=== PATIENT | female | born 1930 | race Caucasian/White ===

== ENCOUNTER 2017-08-23 22:51 | Observation (INO) | payer MEDICARE, BC ==
[2017-08-23] MEDS ORDERED: Sodium Chloride 0.9% 10 ML Syringe FLUSH PRN (23:16)
--- NOTE | 2017-08-24 00:11 | EDM.PDOC ---
ED HPI GENERAL MEDICAL PROBLEM - General Chief Complaint: Cardiovascular Problem Stated Complaint: Elevated Blood Pressure Time Seen by Provider: 08/23/17 22:52 Source of Information: Reports: Patient, RN, RN Notes Reviewed History Limitations: Reports: No Limitations - History of Present Illness INITIAL COMMENTS - FREE TEXT/NARRATIVE: Patient presents the emergency room at [facility] with concerns of elevated blood pressure, blurry vision, and the right arm pressure. The patient states that she "wasn't feeling very well" yesterday so she thought she would monitor her blood pressures due to her symptoms. The patient states that her blood pressures usually run 110s over the 70s. The patient has noticed over the past couple of days her blood pressures have been running 150s to 160s over the 80s. The patient states that she usually takes her blood pressure medication at night because they make her sleepy during the day if she is to take them in the morning. The patient denies any headache. The patient states that her vision feels a little bit off. The patient denies any chest pain. The patient states she still has an achiness of her right shoulder. The patient denies any nausea vomiting or diarrhea. The patient denies any focal neurological changes. The patient states she is steady on her feet. The patient did take her blood pressure medication prior to arrival to the emergency room tonight. The patient states that she was given a wait until clinic time tomorrow but she felt that her symptoms were progressively getting worse. The patient denies any shortness of breath or cough. The patient is compliant with her blood pressure medications. The patient takes Hydrochlorothiazide, Toprol-XL, Micardis daily at bedtime. The patient denies any dizziness. The patient states that she is trying to stay well-hydrated with good by mouth fluid intake. The patient denies any injury to the right arm. Onset Date: 08/22/17 - Related Data Allergies Allergy/AdvReac Type Severity Reaction Status Date / Time amoxicillin trihydrate Allergy Rash Verified 08/24/17 00:46 [From Augmentin] cefazolin Allergy Cannot Verified 08/24/17 00:46 Remember potassium clavulanate Allergy Rash Verified 08/24/17 00:46 [From Augmentin] Home Meds: Home Meds Ascorbic Acid [Vitamin C] 1,000 mg PO DAILY 09/12/14 [History] Estrogens, Conjugated [Premarin] 0.625 mg PO DAILY 09/12/14 [History] Hydrochlorothiazide 1 tab PO DAILY 09/12/14 [History] Ibuprofen 200 mg PO Q6H PRN 09/12/14 [History] Metoprolol Succinate [Toprol XL] 1 tab PO DAILY 09/12/14 [History] Moxifloxacin [Vigamox 0.5% Ophth Soln] 1 drop EYERT TID 09/12/14 [History] Multivitamin W-Minerals/Lutein [Vision Plus Lutein Vitamin] 1 tab PO DAILY 09/12 [History] Oxybutynin Chloride 1 tab PO DAILY 09/12/14 [History] Potassium Chloride 1 cap PO DAILY 09/12/14 [History] Rosuvastatin [Crestor] 20 mg PO DAILY 09/12/14 [History] Telmisartan [Micardis] 80 mg PO DAILY 09/12/14 [History] prednisoLONE Acetate [Pred Forte 1% Ophth Susp] 1 drop EYELF TID 09/12/14 [ History] Ketorolac [Acular 0.5% Ophth Soln] 1 drop EYERT TID 10/11/14 [History] Social & Family History - Tobacco Use Smoking Status *Q: Never Smoker Second Hand Smoke Exposure: No - Alcohol Use Days Per Week of Alcohol Use: 0 - Recreational Drug Use Recreational Drug Use: No ED ROS GENERAL - Review of Systems Review Of Systems: See Below Constitutional: Denies: Fever, Chills, Weakness HEENT: Reports: Vision Change Respiratory: Denies: Shortness of Breath, Cough Cardiovascular: Reports: Blood Pressure Problem. Denies: Chest Pain, Palpitations GI/Abdominal: Denies: Abdominal Pain, Nausea, Vomiting Musculoskeletal: Reports: Shoulder Pain (right) Skin: Reports: No Symptoms Neurological: Reports: No Symptoms. Denies: Dizziness, Headache, Numbness, Paresthesia, Tingling ED EXAM, GENERAL - Physical Exam Exam: See Below Exam Limited By: No Limitations General Appearance: Alert, No Apparent Distress Eye Exam: Bilateral Eye: Normal Inspection, PERRL Head: Atraumatic, Normocephalic Respiratory/Chest: No Respiratory Distress, Lungs Clear, Normal Breath Sounds Cardiovascular: Normal Peripheral Pulses, Regular Rate, Rhythm, No Edema Peripheral Pulses: 2+: Radial (L), Radial (R) GI/Abdominal: Normal Bowel Sounds, Soft, Non-Tender Neurological: Alert, Oriented Skin Exam: Warm, Dry, Intact, Normal Color EKG INTERPRETATION EKG Date: 08/24/17 Time: 23:23 Rhythm: NSR Rate (Beats/Min): 64 [place]: LAD-Left [place] Deviation P-Wave: Present QRS: RBBB ST-T: Normal QT: Normal TN/PQ Interval: 0.16 Comparison: NA - No Prior EKG EKG Interpretation Comments: Sinus rhythm Marked left axis deviation Right bundle branch block Course - Orders/Labs/Meds Orders: Active Orders 24 hr Category Date Time Status Admission Status [Patient Status] [ADT] Routine ADT 08/24/17 01:03 Active EKG 12 Lead [EKG Documentation Completion] [RC] STAT Care 08/23/17 23:14 Active Head wo Cont [CT] Stat Exams 08/23/17 23:15 Taken Sodium Chloride 0.9% [Saline Flush] Med 08/23/17 23:16 Active 10 ml FLUSH ASDIRECTED PRN Peripheral IV Insertion Adult [OM.PC] Routine Oth 08/23/17 23:16 Ordered Medication Orders Sodium Chloride (Saline Flush) 10 ml FLUSH ASDIRECTED PRN PRN Reason: Keep Vein Open Labs: Laboratory Tests 08/23/17 08/23/17 Range/Units 23:31 23:31 WBC 7.7 (4.0-10.0) x10^3/uL RBC 4.31 (4.00-5.50) x10^6/uL Hgb 12.6 (12.0-16.0) g/dL Hct 38.1 (33.0-47.0) % MCV 88.4 (78.0-93.0) fL MCH 29.2 (26.0-32.0) pg MCHC 33.1 (32.0-36.0) g/dL RDW Coeff of Peter 14.1 (10.0-15.0) % Plt Count 211 (130-400) x10^3/uL Neut % (Auto) 60.3 (50.0-80.0) % Lymph % (Auto) 23.4 L (25.0-50.0) % [place] % (Auto) 9.2 (2.0-11.0) % Eos % (Auto) 6.5 H (0.0-4.0) % Baso % (Auto) 0.6 (0.2-1.2) % Sodium 137 (136-145) mmol/L Potassium 3.2 L (3.5-5.1) mmol/L Chloride 101 (98-107) mmol/L Carbon Dioxide 28 (21-32) mmol/L Anion Gap 11.2 (10-20) mmol/L BUN 12 (7-18) mg/dL Creatinine 0.8 (0.55-1.02) mg/dL Est Cr Clr Drug Dosing TNP Estimated GFR (MDRD) > 60 Glucose 130 H (74-106) mg/dL Calcium 8.2 L (8.5-10.1) mg/dL Magnesium 1.3 L (1.8-2.4) mg/dL Creatine Kinase 61 (26-192) U/L Troponin I < 0.017 (<=0.056) ng/mL Meds: Medications Generic Name Dose Route Start Last Admin Trade Name Freq PRN Reason Stop Dose Admin Sodium Chloride 10 ml 08/23/17 23:16 Saline Flush FLUSH ASDIRECTED PRN Keep Vein Open - Radiology Interpretation Free Text/Narrative:: CT Head w/o: Subtle nonspecific areas of low attenuation right cerebellum and bilateral occipital lobes. Suggest MRI scan for further characterization. See scan report in EMR CT Results Date: 08/24/17 CT Results Time: 00:11 Departure - Departure Time of Disposition: 01:09 Disposition: Refer to Observation Reason for Transfer *Q: Other Condition: Good Clinical Impression: Hypertensive urgency - Problem List Review Problem List Initiated/Reviewed/Updated: Yes - My Orders Last 24 Hours: My Active Orders 08/23/17 23:14 EKG 12 Lead [EKG Documentation Completion] [RC] STAT 08/23/17 23:15 Head wo Cont [CT] Stat 08/23/17 23:16 Sodium Chloride 0.9% [Saline Flush] 10 ml FLUSH ASDIRECTED PRN Peripheral IV Insertion Adult [OM.PC] Routine 08/24/17 01:03 Admission Status [Patient Status] [ADT] Routine - Assessment/Plan Last 24 Hours: My Active Orders 08/23/17 23:14 EKG 12 Lead [EKG Documentation Completion] [RC] STAT 08/23/17 23:15 Head wo Cont [CT] Stat 08/23/17 23:16 Sodium Chloride 0.9% [Saline Flush] 10 ml FLUSH ASDIRECTED PRN Peripheral IV Insertion Adult [OM.PC] Routine 08/24/17 01:03 Admission Status [Patient Status] [ADT] Routine Assessment:: Hypertensive urgency Plan: CT of head and labs were discussed with the patient. Given the results of the CT scan and the patient's consistent elevated blood pressure, I will admit her to the observation unit for IV antihypertensives. I will also obtain an MRI scan to further evaluate what was found of the CT scan. All this was discussed with the patient who agrees with the plan of care and the admission.
[2017-08-24 00:23] LABS: CHLORIDE,CL 101 mmol/L (98-107); SODIUM,NA 137 mmol/L (136-145)
[2017-08-24] MEDS ORDERED: Enalaprilat 1.25 MG/ML SDV IVPUSH ONE (02:36)
[2017-08-24] MEDS ORDERED: hydrALAZINE 20 MG/ML SDV IVPUSH ONE (02:40)
[2017-08-24] MEDS ORDERED: Magnesium Sulfate/Water 4 GM in Premix Bag 1 BAG IV ONE (02:41)
[2017-08-24] MEDS ORDERED: Acetaminophen 325 MG Tab PO PRN (02:43)
[2017-08-24] MEDS ORDERED: Ondansetron 4 MG Tab.DIS PO PRN (02:43)
[2017-08-24] MEDS ORDERED: Potassium Chloride 20 MEQ Tab.ER PO ONE (02:45)
[2017-08-24] MEDS ORDERED: Lactated Ringers 1,000 ML IV SCH (02:45)
--- NOTE | 2017-08-24 02:59 | PCM.HP ---
H&P History of Present Illness - General Date of Service: 08/24/17 Admit Problem/Dx: Admission Diagnosis/Problem Admission Diagnosis/Problem Hypertensive urgency Vision Changes Right shoulder pain Source of Information: Patient, Old Records, RN, RN Notes Reviewed History Limitations: Reports: No Limitations - History of Present Illness Initial Comments - Free Text/Narative: Patient presented to the emergency room at [facility] earlier this evening with concerns of elevated blood pressure. The patient also complained of right shoulder discomfort as well as low visual acuity. The patient did not have any injury or trauma to the shoulder. The patient states that her blood pressure has been elevated for the past couple of days. The patient is taking her home blood pressure medications as directed. The patient does take her blood pressure medications at night because she gets too sleepy during the day if she takes them in the morning. The patient did not have any chest pain or shortness of breath. The patient did not have any abdominal pain. The patient denies any nausea vomiting or diarrhea. The patient states that her vision does not feel as sharp. The patient denies any headaches. The patient denies any dizziness. No numbness tingling or paresthesias. The patient has not had any recent falls. The blood pressure baseline usually runs 110s over the 70s. The patient's blood pressure over the past couple of days has been running in the 160s over the 80s. The patient states she has taken her blood pressure randomly throughout the day at night over the past couple of days. The patient states there has not been any change in her lifestyle. The patient continues to eat a diabetic diet. The patient has not consumed too much salt over the past few days. The patient is unsure why her blood pressure has become more elevated, however she is concerned. - Related Data Allergies/Adverse Reactions: Allergies Allergy/AdvReac Type Severity Reaction Status Date / Time amoxicillin trihydrate Allergy Rash Verified 08/24/17 00:46 [From Augmentin] cefazolin Allergy Cannot Verified 08/24/17 00:46 Remember potassium clavulanate Allergy Rash Verified 08/24/17 00:46 [From Augmentin] Home Medications: Home Meds Ascorbic Acid [Vitamin C] 1,000 mg PO DAILY 09/12/14 [History] Estrogens, Conjugated [Premarin] 0.625 mg PO DAILY 09/12/14 [History] Hydrochlorothiazide 1 tab PO DAILY 09/12/14 [History] Ibuprofen 200 mg PO Q6H PRN 09/12/14 [History] Metoprolol Succinate [Toprol XL] 1 tab PO DAILY 09/12/14 [History] Moxifloxacin [Vigamox 0.5% Ophth Soln] 1 drop EYERT TID 09/12/14 [History] Multivitamin W-Minerals/Lutein [Vision Plus Lutein Vitamin] 1 tab PO DAILY 09/12 [History] Oxybutynin Chloride 1 tab PO DAILY 09/12/14 [History] Potassium Chloride 1 cap PO DAILY 09/12/14 [History] Rosuvastatin [Crestor] 20 mg PO DAILY 09/12/14 [History] Telmisartan [Micardis] 80 mg PO DAILY 09/12/14 [History] prednisoLONE Acetate [Pred Forte 1% Ophth Susp] 1 drop EYELF TID 09/12/14 [ History] Ketorolac [Acular 0.5% Ophth Soln] 1 drop EYERT TID 10/11/14 [History] Past Medical History Cardiovascular History: Reports: High Cholesterol, Hypertension Other Genitourinary History: Overactive bladder Endocrine/Metabolic History: Reports: Diabetes, Type II - Past Surgical History HEENT Surgical History: Reports: Cataract Surgery GI Surgical History: Reports: Cholecystectomy Female Surgical History: Reports: Hysterectomy Social & Family History - Family History Family Medical History: Noncontributory - Tobacco Use Smoking Status *Q: Never Smoker Second Hand Smoke Exposure: No - Alcohol Use Days Per Week of Alcohol Use: 0 - Recreational Drug Use Recreational Drug Use: No H&P Review of Systems - Review of Systems: Review Of Systems: See Below General: Denies: Fever, Chills, Weakness HEENT: Reports: Visual Changes Pulmonary: Denies: Shortness of Breath, Cough Cardiovascular: Reports: Blood Pressure Problem. Denies: Chest Pain, Palpitations Gastrointestinal: Denies: Abdominal Pain, Nausea, Vomiting Musculoskeletal: Reports: Shoulder Pain (Right) Skin: Reports: No Symptoms Neurological: Reports: No Symptoms. Denies: Dizziness, Headache Exam - Exam Exam: See Below - Vital Signs Vital Signs: Last Vital Signs Temp 36.6 C 08/24/17 02:08 Pulse 62 08/24/17 02:08 Resp 18 08/24/17 02:08 BP 181/80 H 08/24/17 02:08 Pulse Ox 98 08/24/17 02:08 Weight: 97.522 kg - Exam General: Alert, Oriented, Cooperative, Mild Distress Lungs: Clear to Auscultation, Normal Respiratory Effort Cardiovascular: Regular Rate, Regular Rhythm GI/Abdominal Exam: Normal Bowel Sounds, Soft, Non-Tender Extremities: Normal Range of Motion, Non-Tender Peripheral Pulses: 2+: Radial (L), Radial (R) Skin: Warm, Dry, Intact Neuro Extensive - Mental Status: Alert, Oriented x3 - Patient Data Lab Results Last 24 hrs: Laboratory Results - last 24 hr 08/23/17 08/23/17 Range/Units 23:31 23:31 WBC 7.7 (4.0-10.0) x10^3/uL RBC 4.31 (4.00-5.50) x10^6/uL Hgb 12.6 (12.0-16.0) g/dL Hct 38.1 (33.0-47.0) % MCV 88.4 (78.0-93.0) fL MCH 29.2 (26.0-32.0) pg MCHC 33.1 (32.0-36.0) g/dL RDW Coeff of Peter 14.1 (10.0-15.0) % Plt Count 211 (130-400) x10^3/uL Neut % (Auto) 60.3 (50.0-80.0) % Lymph % (Auto) 23.4 L (25.0-50.0) % [place] % (Auto) 9.2 (2.0-11.0) % Eos % (Auto) 6.5 H (0.0-4.0) % Baso % (Auto) 0.6 (0.2-1.2) % Sodium 137 (136-145) mmol/L Potassium 3.2 L (3.5-5.1) mmol/L Chloride 101 (98-107) mmol/L Carbon Dioxide 28 (21-32) mmol/L Anion Gap 11.2 (10-20) mmol/L BUN 12 (7-18) mg/dL Creatinine 0.8 (0.55-1.02) mg/dL Est Cr Clr Drug Dosing TNP Estimated GFR (MDRD) > 60 Glucose 130 H (74-106) mg/dL Calcium 8.2 L (8.5-10.1) mg/dL Magnesium 1.3 L (1.8-2.4) mg/dL Creatine Kinase 61 (26-192) U/L Troponin I < 0.017 (<=0.056) ng/mL Result Diagrams: 08/23/17 23:31 08/23/17 23:31 *Q Meaningful Use (ADM) - VTE *Q VTE Criteria *Q: No risk for falls at time of admission - Problem List (1) Hypertensive urgency SNOMED Code(s): 741163265 ICD Code: I16.0 - HYPERTENSIVE URGENCY Status: Acute Priority: High Current Visit: Yes Onset Date: ~08/22/17 (2) Diabetes SNOMED Code(s): 73738718 ICD Code: E11.9 - TYPE 2 DIABETES MELLITUS WITHOUT COMPLICATIONS Status: Chronic Priority: Medium Current Visit: No Qualifiers: Diabetes mellitus type: type 2 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 use Diabetes mellitus complication status: without complication Qualified Code(s): E11.9 - Type 2 diabetes mellitus without complications (3) Mixed hyperlipidemia SNOMED Code(s): 780480947 ICD Code: E78.2 - MIXED HYPERLIPIDEMIA Status: Chronic Priority: Low Current Visit: No (4) Overactive bladder SNOMED Code(s): 991666949 ICD Code: N32.81 - OVERACTIVE BLADDER Status: Chronic Priority: Low Current Visit: No (5) Essential hypertension SNOMED Code(s): 26786221 ICD Code: I10 - ESSENTIAL (PRIMARY) HYPERTENSION Status: Chronic Priority : High Current Visit: Yes Problem List Initiated/Reviewed/Updated: Yes Orders Last 24hrs: Active Orders 24 hr Category Date Time Status Patient Status [ADT] Routine ADT 08/24/17 02:43 Ordered Ambulate [RC] ASDIRECTED Care 08/24/17 02:43 Ordered Cardiac Monitoring [RC] CONTINUOUS Care 08/24/17 02:43 Ordered EKG 12 Lead [EKG Documentation Completion] [RC] STAT Care 08/23/17 23:14 Active Height and Weight [RC] UPON Care 08/24/17 02:43 Ordered Intake and Output [RC] QSHIFT Care 08/24/17 02:43 Ordered May Shower [RC] ASDIRECTED Care 08/24/17 02:43 Ordered Oxygen Therapy [RC] PRN Care 08/24/17 02:43 Ordered VTE/DVT Education [RC] PER UNIT ROUTINE Care 08/24/17 02:43 Ordered Vital Signs [RC] Q4H Care 08/24/17 02:43 Ordered Consult to Case Management [CONS] Routine Cons 08/24/17 02:43 Ordered 2 Gram Sodium Diet [DIET] Diet 08/24/17 Breakfast Ordered Brain wo Cont [MR] Routine Exams 08/24/17 02:33 Ordered Head wo Cont [CT] Stat Exams 08/23/17 23:15 Taken BASIC METABOLIC PANEL,BMP [CHEM] Routine Lab 08/24/17 05:11 Ordered CBC WITH AUTO DIFF [HEME] Routine Lab 08/24/17 05:11 Ordered GLYCOSYLATED HEMOGLOBIN,HGBA1C [CHEM] Routine Lab 08/24/17 05:11 Ordered LIPID PANEL [CHEM] Routine Lab 08/24/17 05:11 Ordered MAGNESIUM [CHEM] Routine Lab 08/24/17 05:11 Ordered TSH ULTRASENSITIVE [CHEM] Routine Lab 08/24/17 05:11 Ordered Acetaminophen [Tylenol] Med 08/24/17 02:43 Ordered 650 mg PO Q4H PRN Lactated Ringers [Ringers, Lactated] 1,000 ml Med 08/24/17 02:45 Active IV ASDIRECTED Magnesium Sulfate/Water [Magnesium Sulfate 2 GM in Med 08/24/17 02:45 Active Water 50 ML] 50 ml IV Q2H Ondansetron [Zofran ODT] Med 08/24/17 02:43 Ordered 4 mg PO Q6H PRN Sodium Chloride 0.9% [Saline Flush] Med 08/23/17 23:16 Active 10 ml FLUSH ASDIRECTED PRN Peripheral IV Insertion Adult [OM.PC] Routine Oth 08/23/17 23:16 Ordered Resuscitation Status Routine Resus Stat 08/24/17 02:43 Ordered Medication Orders Acetaminophen (Tylenol) 650 mg PO Q4H PRN PRN Reason: Pain (Mild 1-3)/fever Lactated Ringer's (Ringers, Lactated) 1,000 mls @ 75 mls/hr IV ASDIRECTED KRISTINA Magnesium Sulfate (Magnesium Sulfate 2 Gm In Water 50 Ml) 50 mls @ 25 mls/hr IV Q2H KRISTINA Stop: 08/24/17 06:44 Ondansetron HCl (Zofran Odt) 4 mg PO Q6H PRN PRN Reason: nausea, able to take PO Sodium Chloride (Saline Flush) 10 ml FLUSH ASDIRECTED PRN PRN Reason: Keep Vein Open Assessment/Plan Comment:: 86-year-old female patient with a past medical history of diet-controlled type 2 diabetes, hypertension, mixed hyperlipidemia, overactive bladder, is admitted to the observation unit at [facility] for hypertensive urgency, visual field disturbances, and right shoulder discomfort. The patient will be given IV hydralazine for her uncontrolled blood pressure. I will start the patient on IV fluids for gentle hydration. I will replace the patient's potassium with 40 mEq of by mouth potassium. The patient will get 4 g of magnesium sulfate IV. Given the findings on the CT scan which showed subtle nonspecific areas of low attenuation right cerebellum and bilateral occipital lobe, I will obtain an MRI of the brain tomorrow to rule out any acute pathology. We will continue the patient on her home medications without any changes. I will recheck blood work in the morning. The patient wishes to be a full code. The patient does wish to be transferred to a higher level of care should the need arise. I do not anticipate the patient being admitted for greater than 48 hours.
[2017-08-24] MEDS: Magnesium Sulfate/Water 50 ML IV SCH ×2 (03:48→06:49)
[2017-08-24] MEDS ORDERED: Ibuprofen 200 MG Tab PO PRN (05:45)
[2017-08-24 07:47] LABS: CHLORIDE,CL 103 mmol/L (98-107); SODIUM,NA 139 mmol/L (136-145)
[2017-08-24] MEDS ORDERED: Beta-Carotene (Vitamin A) w/Vitamin C & E plus Minerals Tab PO SCH (08:00)
[2017-08-24] MEDS ORDERED: Oxybutynin 5 MG Tab PO SCH (08:00)
[2017-08-24] MEDS ORDERED: Ascorbic Acid 500 MG Tab PO SCH (08:00)
[2017-08-24] MEDS ORDERED: amLODIPine 2.5 MG Tab PO SCH (08:30)
[2017-08-24] MEDS ORDERED: Gadoteridol 279.3 MG/ML 20 ML SDV IVPUSH ONE (11:00)
[2017-08-24 14:12] VITALS: BP 166/63
[2017-08-24] MEDS ORDERED: Hydrochlorothiazide 25 MG Tab PO SCH (20:00)
[2017-08-24] MEDS ORDERED: TELMISARTAN 80 MG PO SCH (20:00)
[2017-08-24] MEDS ORDERED: Losartan 50 MG Tab PO SCH (20:00)
[2017-08-24] MEDS ORDERED: Metoprolol Succinate 50 MG Tab.ER PO SCH (20:00)
--- NOTE | 2017-08-25 19:49 | PCM.DCSUM1 ---
Discharge Summary - Hospital Course HPI Initial Comments: Patient presented to the emergency room at [facility] yesterday with concerns of elevated blood pressure. The patient had also complained of right shoulder discomfort as well as low visual acuity. The patient did not have any injury or trauma to the shoulder. The patient stated that her blood pressure has been elevated for the past couple of days. The patient is taking her home blood pressure medications as directed. The patient does take her blood pressure medications at night because she gets too sleepy during the day if she takes them in the morning. The patient did not have any chest pain or shortness of breath. The patient did not have any abdominal pain. The patient denies any nausea vomiting or diarrhea. The patient states that her vision did not feel as sharp. The patient denies any headaches. The patient denies any dizziness. No numbness tingling or paresthesias. The patient has not had any recent falls. The blood pressure baseline usually runs 110s over the 70s. The patient's blood pressure over the past couple of days has been running in the 160s over the 80s. The patient states she has taken her blood pressure randomly throughout the day at night over the past couple of days. The patient states there has not been any change in her lifestyle. The patient continues to eat a diabetic diet. The patient has not consumed too much salt over the past few days. The patient is unsure why her blood pressure has become more elevated, however she is concerned. - Discharge Data Discharge Date: 08/24/17 Discharge Disposition: Home, Self-Care 01 Condition: Fair - Discharge Diagnosis/Problem(s) (1) Hypertensive urgency SNOMED Code(s): 731620352 ICD Code: I16.0 - HYPERTENSIVE URGENCY Status: Resolved Priority: High Onset Date: ~08/22/17 (2) Diabetes SNOMED Code(s): 12543169 ICD Code: E11.9 - TYPE 2 DIABETES MELLITUS WITHOUT COMPLICATIONS Status: Chronic Priority: Medium Qualifiers: Diabetes mellitus type: type 2 Diabetes mellitus [facility] insulin use: without [facility] use Diabetes mellitus complication status: without complication Qualified Code(s): E11.9 - Type 2 diabetes mellitus without complications (3) Mixed hyperlipidemia SNOMED Code(s): 363900342 ICD Code: E78.2 - MIXED HYPERLIPIDEMIA Status: Chronic Priority: Low (4) Overactive bladder SNOMED Code(s): 658482599 ICD Code: N32.81 - OVERACTIVE BLADDER Status: Chronic Priority: Low (5) Essential hypertension SNOMED Code(s): 53234560 ICD Code: I10 - ESSENTIAL (PRIMARY) HYPERTENSION Status: Chronic Priority : High - Patient Summary/Data Operative Procedure(s) Performed: None Consults: Consultations 08/24/17 02:43 Consult to Case Management [CONS] Routine Labs Pending at D/C: None Recommended Follow-up Testing/Procedures: None Planned Operative Procedure(s) after DC: None Hospital Course: Overall, patient did well during her hospital stay. Her blood pressure remained controlled with medications. Patient did not have any chest pain or SOB. Patient remained hemodynamically stable. She did not have any issues with urination or BM's. Patient's blood pressures were stable in the 160's, which is above her baseline. - Patient Instructions Diet: Diabetic Diet Activity: Rest and Relax Today Driving: Do Not Drive Showering/Bathing: May Shower Notify Provider of: Fever, Increased Pain Other/Special Instructions: elevated blood pressure - Discharge Plan Home Medications: Home Meds Ascorbic Acid [Vitamin C] 1,000 mg PO DAILY 09/12/14 [History] Estrogens, Conjugated [Premarin] 1 tab PO DAILY 09/12/14 [History] Hydrochlorothiazide 1 tab PO DAILY 09/12/14 [History] Ibuprofen 200 mg PO Q6H PRN 09/12/14 [History] Metoprolol Succinate [Toprol XL] 1 tab PO DAILY 09/12/14 [History] Multivitamin W-Minerals/Lutein [Vision Plus Lutein Vitamin] 1 tab PO DAILY 09/12 [History] Oxybutynin Chloride 1.5 tab PO DAILY 09/12/14 [History] Potassium Chloride 20 meq PO BID 09/12/14 [History] Telmisartan [Micardis] 80 mg PO DAILY 09/12/14 [History] Patient Handouts: Hypertension Referrals: Yvonne Meredith DO [Physician] - - Discharge Summary/Plan Comment DC Time >30 min.: No Discharge Summary/Plan Comment: Patient will be discharge home today. Reviewed home medications for blood pressure with patient. Encouraged to monitor them. Would like to see patient follow up with PCP in the next week for a blood pressure recheck and possible medication change. Discussed with patient to return if her blood pressure gets elevated again. The patient did have a suspicious area around the cerebellum seen on CT of head. MRI completed which came back as normal. Patient aware prior to discharge. - General Info Date of Service: 08/24/17 Admission Dx/Problem (Free Text: Admission Diagnosis/Problem Admission Diagnosis/Problem Hypertensive urgency Vision Changes Right shoulder pain Functional Status: Reports: Pain Controlled, Tolerating Diet, Ambulating, Urinating Numeric/FACES Score: 0 - Review of Systems General: Denies: Fever, Weakness, Chills Pulmonary: Denies: Shortness of Breath, Sputum Cardiovascular: Denies: Chest Pain, Palpitations Gastrointestinal: Denies: Abdominal Pain, Nausea, Vomiting Skin: Reports: No Symptoms Neurological: Reports: No Symptoms. Denies: Dizziness, Headache, Numbness, Paresthesia, Tingling - Patient Data Vitals - Most Recent: Last Vital Signs Temp 36.3 C 08/24/17 14:00 Pulse 52 L 08/24/17 14:00 Resp 16 08/24/17 14:00 BP 166/63 H 08/24/17 14:00 Pulse Ox 97 08/24/17 14:00 Weight - Most Recent: 97.522 kg Lab Results - Last 24 hrs: Laboratory Results - last 24 hr 08/24/17 08/24/17 08/24/17 Range/Units 09:44 09:44 09:44 Free T4 0.80 (0.58-1.64) ng/dL Free T3 pg/mL 3.41 (2.50-3.90) pg/mL Total T3 116 (87-178) ng/dL Med Orders - Current: Current Medications Discontinued Medications Acetaminophen (Tylenol) 650 mg PO Q4H PRN PRN Reason: Pain (Mild 1-3)/fever Amlodipine Besylate (Norvasc) 2.5 mg PO DAILY [facility] Last Admin: 08/24/17 09:02 Dose: 2.5 mg Ascorbic Acid (Vitamin C) 1,000 mg PO DAILY [facility] Last Admin: 08/24/17 09:01 Dose: 1,000 mg Enalaprilat (Vasotec Iv) 1.25 mg IVPUSH ONETIME ONE Stop: 08/24/17 02:37 Last Admin: 08/24/17 03:47 Dose: Not Given Estrogens Conjugated (Premarin) 0.625 mg PO DAILY [facility] Last Admin: 08/24/17 09:05 Dose: Not Given Gadoteridol (Prohance) 20 ml IVPUSH ONETIME ONE Stop: 08/24/17 11:01 Last Admin: 08/25/17 13:38 Dose: 20 ml Hydralazine HCl (Apresoline) 10 mg IVPUSH ONETIME ONE Stop: 08/24/17 02:41 Last Admin: 08/24/17 03:49 Dose: 10 mg Hydrochlorothiazide (Hydrochlorothiazide) 25 mg PO DAILY@1999 [facility] Lactated Ringer's (Ringers, Lactated) 1,000 mls @ 75 mls/hr IV ASDIRECTED [facility] Last Admin: 08/24/17 03:50 Dose: 75 mls/hr Magnesium Sulfate (Magnesium Sulfate 2 Gm In Water 50 Ml) 50 mls @ 25 mls/hr IV Q2H [facility] Stop: 08/24/17 06:44 Last Admin: 08/24/17 06:49 Dose: 25 mls/hr Ibuprofen (Motrin) 200 mg PO Q6H PRN PRN Reason: Pain Losartan Potassium (Cozaar) 100 mg PO DAILY@1999 [facility] Metoprolol Succinate (Toprol Xl) 100 mg PO DAILY@1999 [facility] Multivitamins/Minerals (Prosight) 1 tab PO DAILY [facility] Last Admin: 08/24/17 09:01 Dose: 1 tab Ondansetron HCl (Zofran Odt) 4 mg PO Q6H PRN PRN Reason: nausea, able to take PO Oxybutynin Chloride (Oxybutynin) 7.5 mg PO DAILY [facility] Last Admin: 08/24/17 09:02 Dose: 7.5 mg Potassium Chloride (Klor-Con M20) 40 meq PO ONETIME ONE Stop: 08/24/17 02:46 Last Admin: 08/24/17 03:52 Dose: 40 meq Sodium Chloride (Saline Flush) 10 ml FLUSH ASDIRECTED PRN PRN Reason: Keep Vein Open Last Admin: 08/24/17 06:53 Dose: 10 ml - Exam General: Reports: Alert, Oriented, Cooperative, No Acute Distress HEENT: Reports: Pupils Equal, Pupils Reactive Lungs: Reports: Clear to Auscultation, Normal Respiratory Effort Cardiovascular: Reports: Regular Rate, Regular Rhythm, No Murmurs GI/Abdominal Exam: Normal Bowel Sounds, Soft, Non-Tender Skin: Reports: Warm, Dry, Intact Neurological: Reports: No New Focal Deficit *Q Meaningful Use (DIS) - VTE *Q VTE Criteria *Q: Patient not at risk for falls at time of discharge
== END 2017-08-24 17:22 | disposition home or self-care (01) ==
LOC: VM.ED 22:51 → VM.MS 08-24 01:03
PROVIDERS: ADMIT Nurse Practitioner Family; ATTEND Nurse Practitioner Family
DX: I16.0 Hypertensive urgency (principal); M25.511 Pain in right shoulder; E11.9 Type 2 diabetes mellitus without complications; E78.2 Mixed hyperlipidemia; N32.81 Overactive bladder; I10 Essential (primary) hypertension; Z79.899 Other long term (current) drug therapy; Z88.1 Allergy status to other antibiotic agents; Z88.8 Allergy status to other drugs, medicaments and biological substances; Z90.49 Acquired absence of other specified parts of digestive tract; Z90.710 Acquired absence of both cervix and uterus
CPT/HCPCS: 36415; 70450; 70553; 80048; 80061; 82550; 82962; 83036; 83735; 84436; 84439; 84443; 84480; 84481; 84484; 85025; 86376; 99284; A9270; J0360; J7050; J7120; 93010; 96365; 96366; 96375; G0378; J3475

== ENCOUNTER 2020-01-30 19:21 | Emergency (ER) | payer MEDICARE, BC ==
--- NOTE | 2020-01-30 19:44 | CT ---
[id number] CT/CT Head WO IV EXAM: CT Head WO IV CLINICAL DATA: STROKE LIKE SYMPTOMS COMPARISON STUDY: 08/23/2017. FINDINGS: No intracranial hemorrhage, extra-axial fluid collection, mass, or acute ischemia. Generalized parenchymal atrophy with scattered areas of nonspecific white matter disease, commonly seen as sequela of chronic microvascular ischemia. Soft tissues are unremarkable. Paranasal sinuses and mastoid air cells are clear. IMPRESSION: No acute intracranial findings. Blake Kellogg DO 01/30/20 1943 Thank you for allowing us to participate in the care of your patient.
[2020-01-30 20:01] LABS: ANION GAP 11.5 mmol/L (10-20); CHLORIDE,CL 97 mmol/L (98-107); SODIUM,NA 132 mmol/L (136-145)
--- NOTE | 2020-01-30 20:42 | EDM.PDOC ---
ED HPI GENERAL MEDICAL PROBLEM - General Chief Complaint: Neuro Symptoms/Deficits Stated Complaint: STROKE CODE Time Seen by Provider: 01/30/20 19:18 Source of Information: Reports: Patient, EMS, EMS Notes Reviewed, Family, RN, RN Notes Reviewed History Limitations: Reports: Other (Strokelike symptoms) - History of Present Illness INITIAL COMMENTS - FREE TEXT/NARRATIVE: Patient presents to ER per [facility] ambulance service with complaint of strokelike symptoms. 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 Patient had left-sided gaze deviation, right-sided facial droop and right-sided weakness. Last known well was 1809. Report from daughter is the patient has a history of diabetes, hypertension. Daughter states the patient fell in October when at the other daughter's home, causing a concussion. Daughter states she does have a hernia in her esophagus, so already has problems with swallowing. States she does not feel she takes in enough fluid or nutrients. Patient answers questions appropriately is alert and oriented, is sleepy and yawning though. Denies any pain denies headache. NIH score 15. GCS 15. Onset: Today, Sudden - Related Data Allergies Allergy/AdvReac Type Severity Reaction Status Date / Time amoxicillin trihydrate Allergy Rash Verified 01/30/20 20:12 [From Augmentin] cefazolin Allergy Cannot Verified 01/30/20 20:12 Remember potassium clavulanate Allergy Rash Verified 01/30/20 20:12 [From Augmentin] Home Meds: Home Meds Ascorbic Acid [Vitamin C] 1,000 mg PO DAILY 09/12/14 [History] Estrogens, Conjugated [Premarin] 1 tab PO DAILY 09/12/14 [History] Hydrochlorothiazide 1 tab PO DAILY 09/12/14 [History] Ibuprofen 200 mg PO Q6H PRN 09/12/14 [History] Metoprolol Succinate [Toprol XL] 1 tab PO DAILY 09/12/14 [History] Multivit with Minerals/Lutein [Vision Plus Lutein Vitamin] 1 tab PO DAILY 09/12/14 [History] Oxybutynin Chloride 1.5 tab PO BID 09/12/14 [History] Potassium Chloride 20 meq PO BID 09/12/14 [History] Telmisartan [Micardis] 80 mg PO DAILY 09/12/14 [History] Magnesium Chloride [Slow-Mag] 2 cap PO DAILY 01/30/20 [History] Past Medical History Cardiovascular History: Reports: High Cholesterol, Hypertension Other Genitourinary History: Overactive bladder Endocrine/Metabolic History: Reports: Diabetes, Type II - Infectious Disease History Infectious Disease History: Reports: None - Past Surgical History HEENT Surgical History: Reports: Cataract Surgery GI Surgical History: Reports: Cholecystectomy Female Surgical History: Reports: Hysterectomy Social & Family History - Family History Family Medical History: Noncontributory - Caffeine Use Caffeine Use: Reports: Coffee ED ROS GENERAL - Review of Systems Review Of Systems: Comprehensive ROS is negative, except as noted in HPI. ED EXAM, NEURO - Physical Exam Exam: See Below Exam Limited By: No Limitations General Appearance: Alert, WD/WN, No Apparent Distress Eye Exam: Bilateral Eye: EOMI, Other (Left gaze deviation, but does orient to the center when focusing. Follows finger movements in cardinal areas) Ears: Normal External Exam, Hearing Grossly Normal Nose: Normal Inspection Throat/Mouth: Normal Voice (Slurred speech), No Airway Compromise, Other (Right- sided facial droop) Head Exam: Atraumatic, Normocephalic Neck: Normal Inspection, Supple, Non-Tender, Full Range of Motion Respiratory/Chest: No Respiratory Distress, Lungs Clear, Normal Breath Sounds, No Accessory Muscle Use, Chest Non-Tender Cardiovascular: Normal Peripheral Pulses, Regular Rate, Rhythm, No Edema, No Gallop, No JVD, No Murmur, No Rub GI/Abdominal: Normal Bowel Sounds, Soft, Non-Tender (Female) Exam: Deferred Rectal (Female) Exam: Deferred Neurological: Alert, Normal Mood/Affect, Oriented x 3. No: Abnormal Light Touch, Abnormal Motor Back Exam: Normal Inspection, Decreased Range of Motion Extremities: Normal Inspection, Non-Tender, No Pedal Edema, Normal Capillary Refill, Limited Range of Motion Psychiatric: Normal Mood, Flat Affect Skin Exam: Warm, Dry, Intact, Normal Color, No Rash Course - Orders/Labs/Meds Labs: Laboratory Tests 01/30/20 01/30/20 01/30/20 Range/Units 19:29 19:36 19:36 WBC 8.8 (4.0-10.0) x10^3/uL RBC 4.21 (4.00-5.50) x10^6/uL Hgb 12.1 (12.0-16.0) g/dL Hct 36.3 (33.0-47.0) % MCV 86.2 (78.0-93.0) fL MCH 28.7 (26.0-32.0) pg MCHC 33.3 (32.0-36.0) g/dL RDW Coeff of Peter 13.7 (10.0-15.0) % Plt Count 231 (130-400) x10^3/uL Neut % (Auto) 64.8 (50.0-80.0) % Lymph % (Auto) 20.1 L (25.0-50.0) % [place] % (Auto) 10.0 (2.0-11.0) % Eos % (Auto) 4.6 H (0.0-4.0) % Baso % (Auto) 0.5 (0.2-1.2) % PT 10.9 (9.5-12.3) SEC INR 1.0 L (2.0-3.5) Sodium (136-145) mmol/L Potassium (3.5-5.1) mmol/L Chloride (98-107) mmol/L Carbon Dioxide (21-32) mmol/L Anion Gap (10-20) mmol/L BUN (7-18) mg/dL Creatinine (0.55-1.02) mg/dL Est Cr Clr Drug Dosing Estimated GFR (MDRD) Glucose (74-106) mg/dL POC Glucose 135 H (74-106) mg/dL Calcium (8.5-10.1) mg/dL Corrected Calcium (8.5-10.1) mg/dL Total Bilirubin (0.2-1.0) mg/dL AST (15-37) U/L ALT (14-59) U/L Alkaline Phosphatase (46-116) U/L POC Troponin I (0.00-0.08) ng/mL Total Protein (6.4-8.2) g/dL Albumin (3.4-5.0) g/dL Globulin Albumin/Globulin Ratio POC Result Comm Ethyl Alcohol (0-3) mg/dL 01/30/20 01/30/20 Range/Units 19:36 19:37 WBC (4.0-10.0) x10^3/uL RBC (4.00-5.50) x10^6/uL Hgb (12.0-16.0) g/dL Hct (33.0-47.0) % MCV (78.0-93.0) fL MCH (26.0-32.0) pg MCHC (32.0-36.0) g/dL RDW Coeff of Peter (10.0-15.0) % Plt Count (130-400) x10^3/uL Neut % (Auto) (50.0-80.0) % Lymph % (Auto) (25.0-50.0) % [place] % (Auto) (2.0-11.0) % Eos % (Auto) (0.0-4.0) % Baso % (Auto) (0.2-1.2) % PT (9.5-12.3) SEC INR (2.0-3.5) Sodium 132 L (136-145) mmol/L Potassium 3.5 (3.5-5.1) mmol/L Chloride 97 L (98-107) mmol/L Carbon Dioxide 27 (21-32) mmol/L Anion Gap 11.5 (10-20) mmol/L BUN 14 (7-18) mg/dL Creatinine 0.8 (0.55-1.02) mg/dL Est Cr Clr Drug Dosing TNP Estimated GFR (MDRD) > 60 Glucose 121 H (74-106) mg/dL POC Glucose (74-106) mg/dL Calcium 8.9 (8.5-10.1) mg/dL Corrected Calcium 9.54 (8.5-10.1) mg/dL Total Bilirubin 0.4 (0.2-1.0) mg/dL AST 10 L (15-37) U/L ALT 18 (14-59) U/L Alkaline Phosphatase 56 (46-116) U/L POC Troponin I 0.14 H* (0.00-0.08) ng/mL Total Protein 7.4 (6.4-8.2) g/dL Albumin 3.2 L (3.4-5.0) g/dL Globulin 4.2 Albumin/Globulin Ratio 0.76 POC Result Comm Called critical res Ethyl Alcohol < 3 (0-3) mg/dL - Radiology Interpretation Free Text/Narrative:: Head CT: No acute intracranial findings See radiologist report - Re-Assessments/Exams Free Text/Narrative Re-Assessment/Exam: 01/30/20 22:52 Discuss[address] patient case with Dr. Owusu at [facility], who agreed to accept the patient for transfer. Departure - Departure Time of Disposition: 20:40 Disposition: DC/Tfer to Acute Hospital 02 Condition: Fair, Serious Clinical Impression: Stroke-like symptom, Elevated troponin - Discharge Information *PRESCRIPTION DRUG MONITORING PROGRAM REVIEWED*: No *COPY OF PRESCRIPTION DRUG MONITORING REPORT IN PATIENT MALLORY: No Referrals: Yvonne Meredith DO [Primary Care Provider] - Forms: ED Department Discharge, Interfacility Transfer JOSETTE
== END 2020-01-30 21:02 | disposition short-term general hospital (02) ==
LOC: VM.ED 19:21
DX: R29.818 Other symptoms and signs involving the nervous system (principal); R79.89 Other specified abnormal findings of blood chemistry; R47.81 Slurred speech; R29.810 Facial weakness; I10 Essential (primary) hypertension; E11.9 Type 2 diabetes mellitus without complications; Z88.1 Allergy status to other antibiotic agents; Z90.710 Acquired absence of both cervix and uterus; Z90.49 Acquired absence of other specified parts of digestive tract; Z79.899 Other long term (current) drug therapy
CPT/HCPCS: 70450; 80053; 80307; 82962; 84484; 85025; 85610; 99284; 99285-25